=== PATIENT | male | born 1930 | race Caucasian/White ===

== ENCOUNTER 2016-11-17 18:41 | Inpatient (IN) | payer MEDICARE, MEDICAID ==
[~2016-11-17] VITALS: Ht 167.6 cm; Wt 65.1 kg
[~2016-11-17 18:41] MED LIST: ETOMIDATE 2 MG/ML 10 ML VIAL IVP ONE; SUCCINYLCHOLINE CHLORIDE 20 MG/ML 10 ML VIAL IVP ONE
[2016-11-17] MEDS ORDERED: RAPID SEQUENCE KIT [RSI] 1 EACH KIT ONE ×2 (18:53)
[2016-11-17] MEDS ORDERED: SUCCINYLCHOLINE CHLORIDE 20 MG/ML 10 ML VIAL ONE (18:54)
[2016-11-17] MEDS ORDERED: DEXTROSE 50%-WATER 25 GM/50 ML SYRINGE IVP ONE ×2 (18:54→19:15)
[2016-11-17 19:23] LABS: BASOPHILS % (AUTO) 0.2 % (0.0-2.0); EOSINOPHILS % (AUTO) 0.8 % (1.0-6.0); HEMOGLOBIN 11.2 g/dL (13.5-17.5); LYMPHOCYTES # (AUTO) 1.2 K/uL (1.0-4.8); LYMPHOCYTES % (AUTO) 10.8 % (22.0-44.0); MEAN CORPUSCULAR HEMOGLOBIN 28.5 pg (26.0-34.0); MEAN CORPUSCULAR HGB CONC 31.1 G/dL (31.0-37.0); MEAN CORPUSCULAR VOLUME 92 fL (80-100); MONOCYTES # (AUTO) 0.5 K/uL (0.1-1.0); MONOCYTES % (AUTO) 4.3 % (2.0-9.0); NEUTROPHILS # (AUTO) 9.5 K/uL (1.8-7.7); NEUTROPHILS % (AUTO) 83.9 % (40.0-70.0); PLATELET COUNT (AUTO) 240 K/uL (150-450); RED BLOOD CELL COUNT(AUTO) 3.92 MIL/uL (4.50-5.90); RED CELL DISTRIBUTION WIDTH 18.2 % (11.5-14.5); WHITE BLOOD COUNT (AUTO) 11.3 K/uL (4.5-11.0)
[2016-11-17] MEDS ORDERED: PROPOFOL 1000 MG/ISO-OSM 100 ML IV PRN (19:30)
[2016-11-17 19:35] LABS: INR 1.1 (0.9-1.1)
[2016-11-17 19:46] LABS: RBC MORPHOLOGY COMMENT ABNORMAL RBC MORPH
[2016-11-17 19:46] LABS: GLUCOSE,POINT OF CARE 168 MG/DL (70-110)
[2016-11-17 20:01] LABS: ALANINE AMINOTRANSFERASE 19 U/L (12-78); ANION GAP 17 mmol/L (8-16); ASPARTATE AMINOTRANSFERASE 22 U/L (15-37); BILIRUBIN,TOTAL 0.4 mg/dL (0.1-1.0); CALCIUM, TOTAL 8.6 mg/dL (8.8-10.5); CARBON DIOXIDE 20 mmol/L (22-29); CHLORIDE 128 mmol/L (98-107); CREATINE KINASE MB 1.3 ng/mL (0-5); CREATINE KINASE, TOTAL 135 U/L (39-308); CREATININE 2.22 mg/dL (0.60-1.30); GLOMERULAR FILTR. RATE CALC 28 mL/min (>60); POTASSIUM 5.2 mmol/L (3.5-5.1); TOTAL PROTEIN, SERUM 7.8 g/dL (6.4-8.2); UREA NITROGEN, BLOOD 49 mg/dL (7-18)
[2016-11-17 20:05] LABS: SODIUM SERUM 165 mmol/L (136-145)
[2016-11-17] MEDS ORDERED: SODIUM CHLORIDE 0.9% 1,000 ML IV ONE (20:30)
[2016-11-17 20:32] LABS: APPEARANCE,URINE CLOUDY (CLEAR); PH,URINE >=9.0 (5.0-8.0)
[2016-11-17 20:33] LABS: ADD UA MICROSCOPIC YES; GLUCOSE, URINE (UA) NEGATIVE (NEGATIVE); KETONES,URINE NEGATIVE (NEGATIVE); LEUKOCYTE ESTERASE ,URINE LARGE (NEGATIVE); OCCULT BLOOD,URINE SMALL (NEGATIVE); PROTEIN,URINE SEE CONFIRM (NEGATIVE)
[2016-11-17 20:41] LABS: SULFOSALICYLIC ACID,URINE 1+ (Negative)
[2016-11-17 20:42] LABS: WBC,URINE Full Field /HPF (0-5)
[2016-11-17] MEDS ORDERED: RISP0.5T19 PO (20:54)
[2016-11-17] MEDS ORDERED: DOCU250C91 PO (20:54)
[2016-11-17] MEDS ORDERED: AMLO5TAB66 PO (20:54)
[2016-11-17] MEDS ORDERED: CefTRIAXone 1 GM/DEXTROSE 50 ML IV ONE (21:00)
[2016-11-17 21:35] LABS: ABG A-A DIFF O2 276.6 mmHg (10-20.0); ABG BASE EXCESS -6.7 mmol/L (-2.0-3.0); ABG HCO3 19.9 mmol/L (22.0-26.0); ABG OXYHEMOGLOBIN 97.4 % (94.0-100.0); ABG PCO2 28 mmHg (35-45); ABG PH 7.417 (7.35-7.450); TEMPERATURE, FAHRENHEIT, BG 98.6 FAHREN (96.0-98.6)
[2016-11-17 21:36] LABS: ALLEN TEST, BLOOD GAS Positive
[2016-11-17] MEDS ORDERED: LEVOFLOXACIN 250 MG/D5% WATER 50 ML IV SCH (22:00)
[2016-11-17] MEDS: SODIUM CHLORIDE 0.45% 1,000 ML IV SCH (22:29)
[2016-11-18 01:46] LABS: GLUCOSE,POINT OF CARE 100 MG/DL (70-110)
[2016-11-18 04:51] LABS: BASOPHILS % (AUTO) 0.4 % (0.0-2.0); EOSINOPHILS % (AUTO) 0.2 % (1.0-6.0); HEMATOCRIT 32.7 % (41-53); HEMOGLOBIN 10.4 g/dL (13.5-17.5); LYMPHOCYTES # (AUTO) 1.4 K/uL (1.0-4.8); LYMPHOCYTES % (AUTO) 8.8 % (22.0-44.0); MEAN CORPUSCULAR HEMOGLOBIN 28.9 pg (26.0-34.0); MEAN CORPUSCULAR HGB CONC 31.9 G/dL (31.0-37.0); MEAN CORPUSCULAR VOLUME 90 fL (80-100); MONOCYTES # (AUTO) 0.5 K/uL (0.1-1.0); MONOCYTES % (AUTO) 2.9 % (2.0-9.0); NEUTROPHILS # (AUTO) 13.7 K/uL (1.8-7.7); PLATELET COUNT (AUTO) 191 K/uL (150-450); RED BLOOD CELL COUNT(AUTO) 3.62 MIL/uL (4.50-5.90); RED CELL DISTRIBUTION WIDTH 17.7 % (11.5-14.5); WHITE BLOOD COUNT (AUTO) 15.6 K/uL (4.5-11.0)
[2016-11-18 05:04] LABS: NEUTROPHILS % (AUTO) 87.7 % (40.0-70.0)
[2016-11-18 05:05] LABS: CALCIUM, TOTAL 8.3 mg/dL (8.8-10.5); CREATININE 2.37 mg/dL (0.60-1.30); POTASSIUM 4.3 mmol/L (3.5-5.1)
[2016-11-18] MEDS: ASPIRIN 81 MG CHEWABLE TABLET PO SCH (09:00)
[2016-11-18] MEDS: DOCUSATE SODIUM 100 MG CAPSULE PO SCH ×2 (09:00→20:18)
[2016-11-18] MEDS: PANTOPRAZOLE SODIUM 40 MG/VIAL IVP SCH (09:58)
[2016-11-18] MEDS: HEPARIN SODIUM,PORCINE 5,000 UNITS/ML VIAL SQ SCH ×2 (09:58→20:18)
[2016-11-18] MEDS: SODIUM CHLORIDE 0.45% 1,000 ML IV SCH (12:10)
[2016-11-18] MEDS ORDERED: PROPOFOL 1000 MG/ISO-OSM 100 ML IV ONE (12:15)
[2016-11-18] MEDS ORDERED: DOXYCYCLINE 50 MG PO ONE (15:15)
[2016-11-18 16:44] VITALS: BP 119/51
[2016-11-18] MEDS: DEXTROSE 5%-WATER 1,000 ML IV SCH (17:54)
[2016-11-18] MEDS: CefTRIAXone 1 GM/DEXTROSE 50 ML IV SCH (21:07)
[2016-11-18] MEDS ORDERED: INFLUENZA VIRUS VACCINE QVS 2016-17 (3YR+)/PF 60 MCG/0.5 ML SYRINGE IM ONE (22:15)
[2016-11-18] MEDS ORDERED: PNEUMOCOCCAL VACCINE POLYVALENT 0.5 ML VIAL [PPSV23] IM ONE (22:45)
[2016-11-19] VITALS: BP 110/55
[2016-11-19 04:00] VITALS: BP 129/56
[2016-11-19] MEDS: DEXTROSE 5%-WATER 1,000 ML IV SCH ×4 (04:45→18:28)
[2016-11-19 08:00] VITALS: BP 130/51
[2016-11-19 08:09] LABS: ABG A-A DIFF O2 119.3 mmHg (10-20.0); ABG BASE EXCESS -6.7 mmol/L (-2.0-3.0); ABG HCO3 19.8 mmol/L (22.0-26.0); ABG OXYHEMOGLOBIN 96.9 % (94.0-100.0); ABG PCO2 29 mmHg (35-45); ABG PH 7.412 (7.35-7.450); TEMPERATURE, FAHRENHEIT, BG 98.6 FAHREN (96.0-98.6)
[2016-11-19 08:10] LABS: ALLEN TEST, BLOOD GAS Positive
[2016-11-19 08:34] LABS: EOSINOPHILS % (AUTO) 1.1 % (1.0-6.0); HEMATOCRIT 28.1 % (41-53); LYMPHOCYTES # (AUTO) 1.5 K/uL (1.0-4.8); LYMPHOCYTES % (AUTO) 8.4 % (22.0-44.0); MEAN CORPUSCULAR HEMOGLOBIN 28.8 pg (26.0-34.0); MEAN CORPUSCULAR HGB CONC 31.9 G/dL (31.0-37.0); MEAN CORPUSCULAR VOLUME 90 fL (80-100); MONOCYTES # (AUTO) 0.8 K/uL (0.1-1.0); MONOCYTES % (AUTO) 4.4 % (2.0-9.0); PLATELET COUNT (AUTO) 143 K/uL (150-450); RED BLOOD CELL COUNT(AUTO) 3.12 MIL/uL (4.50-5.90); RED CELL DISTRIBUTION WIDTH 17.7 % (11.5-14.5); WHITE BLOOD COUNT (AUTO) 17.4 K/uL (4.5-11.0)
[2016-11-19] MEDS: PANTOPRAZOLE SODIUM 40 MG/VIAL IVP SCH (08:35)
[2016-11-19] MEDS: DOCUSATE SODIUM 100 MG CAPSULE PO SCH ×2 (08:35→20:18)
[2016-11-19] MEDS: HEPARIN SODIUM,PORCINE 5,000 UNITS/ML VIAL SQ SCH ×2 (08:35→20:18)
[2016-11-19] MEDS: ASPIRIN 81 MG CHEWABLE TABLET PO SCH (08:36)
[2016-11-19 08:37] LABS: NEUTROPHILS % (AUTO) 86.1 % (40.0-70.0)
[2016-11-19 08:50] LABS: CREATININE 2.49 mg/dL (0.60-1.30)
[2016-11-19] MEDS: DOXYCYCLINE 100 MG in DEXTROSE 5%-WATER 100 ML IV SCH ×2 (09:36→19:12)
[2016-11-19 11:55] LABS: ABG A-A DIFF O2 117.5 mmHg (10-20.0); ABG BASE EXCESS -7.5 mmol/L (-2.0-3.0); ABG HCO3 19.2 mmol/L (22.0-26.0); ABG OXYHEMOGLOBIN 97.2 % (94.0-100.0); ABG PCO2 28 mmHg (35-45); ABG PH 7.404 (7.35-7.450); TEMPERATURE, FAHRENHEIT, BG 97.6 FAHREN (96.0-98.6)
[2016-11-19 11:56] LABS: ALLEN TEST, BLOOD GAS Positive
[2016-11-19 12:00] VITALS: BP 136/50
[2016-11-19 16:00] VITALS: BP 130/47
[2016-11-19 20:00] VITALS: BP 118/42
[2016-11-19] MEDS: CefTRIAXone 1 GM/DEXTROSE 50 ML IV SCH (20:15)
[2016-11-20] VITALS: BP 111/44
[2016-11-20 04:00] VITALS: BP 115/45
[2016-11-20 06:19] LABS: CALCIUM, TOTAL 7.8 mg/dL (8.8-10.5); CREATININE 2.05 mg/dL (0.60-1.30); POTASSIUM 3.2 mmol/L (3.5-5.1)
[2016-11-20 06:44] LABS: BASOPHILS % (AUTO) 0.1 % (0.0-2.0); EOSINOPHILS % (AUTO) 3.1 % (1.0-6.0); HEMATOCRIT 27.6 % (41-53); HEMOGLOBIN 8.9 g/dL (13.5-17.5); LYMPHOCYTES % (AUTO) 7.9 % (22.0-44.0); MEAN CORPUSCULAR HGB CONC 32.1 G/dL (31.0-37.0); MEAN CORPUSCULAR VOLUME 90 fL (80-100); MONOCYTES # (AUTO) 0.5 K/uL (0.1-1.0); NEUTROPHILS % (AUTO) 84.9 % (40.0-70.0); PLATELET COUNT (AUTO) 136 K/uL (150-450); RED BLOOD CELL COUNT(AUTO) 3.05 MIL/uL (4.50-5.90); RED CELL DISTRIBUTION WIDTH 18.1 % (11.5-14.5); WHITE BLOOD COUNT (AUTO) 12.9 K/uL (4.5-11.0)
[2016-11-20] MEDS: DEXTROSE 5%-WATER 1,000 ML IV SCH (07:34)
[2016-11-20 08:00] VITALS: BP 115/41
[2016-11-20] MEDS ORDERED: POTASSIUM CHLORIDE 10% 40 MEQ/30 ML LIQUID UDCUP NG ONE (08:15)
[2016-11-20] MEDS: DOXYCYCLINE 100 MG in DEXTROSE 5%-WATER 100 ML IV SCH ×2 (08:23→22:41)
[2016-11-20] MEDS: PANTOPRAZOLE SODIUM 40 MG/VIAL IVP SCH (09:24)
[2016-11-20] MEDS: ASPIRIN 81 MG CHEWABLE TABLET PO SCH (09:24)
[2016-11-20] MEDS: HEPARIN SODIUM,PORCINE 5,000 UNITS/ML VIAL SQ SCH ×2 (09:25→22:46)
[2016-11-20] MEDS: DOCUSATE SODIUM 100 MG CAPSULE PO SCH ×2 (09:25→22:46)
[2016-11-20] MEDS: POTASSIUM CHLORIDE 20 MEQ in DEXTROSE 5%-WATER 1,000 ML IV SCH (09:28)
[2016-11-20 12:00] VITALS: BP 115/48
[2016-11-20 16:00] VITALS: BP 112/47
[2016-11-20 20:10] VITALS: BP 133/46
[2016-11-21] VITALS (7 sets, daily range): BP systolic 111–151; BP diastolic 46–59
[2016-11-21] MEDS: CefTRIAXone 1 GM/DEXTROSE 50 ML IV SCH ×2 (00:09→20:47)
[2016-11-21] MEDS: POTASSIUM CHLORIDE 20 MEQ in DEXTROSE 5%-WATER 1,000 ML IV SCH (02:17)
[2016-11-21 07:43] LABS: CALCIUM, TOTAL 8.1 mg/dL (8.8-10.5); CREATININE 1.69 mg/dL (0.60-1.30); POTASSIUM 4.5 mmol/L (3.5-5.1)
[2016-11-21 08:10] LABS: BASOPHILS # (AUTO) 0.01 K/uL (0.00-0.20); BASOPHILS % (AUTO) 0.1 % (0.0-2.0); EOSINOPHILS # (AUTO) 0.25 K/uL (0.00-0.70); EOSINOPHILS % (AUTO) 2.86 % (1.0-6.0); HEMATOCRIT 28.5 % (41-53); HEMOGLOBIN 9.4 g/dL (13.5-17.5); LYMPHOCYTES # (AUTO) 0.6 K/uL (1.0-4.8); MEAN CORPUSCULAR HEMOGLOBIN 29.2 pg (26.0-34.0); MEAN CORPUSCULAR VOLUME 88 fL (80-100); MONOCYTES # (AUTO) 0.3 K/uL (0.1-1.0); MONOCYTES % (AUTO) 3.4 % (2.0-9.0); NEUTROPHILS # (AUTO) 7.7 K/uL (1.8-7.7); PLATELET COUNT (AUTO) 155 K/uL (150-450); RED BLOOD CELL COUNT(AUTO) 3.22 MIL/uL (4.50-5.90); RED CELL DISTRIBUTION WIDTH 17.9 % (11.5-14.5); WHITE BLOOD COUNT (AUTO) 8.9 K/uL (4.5-11.0)
[2016-11-21 08:12] LABS: NEUTROPHILS % (AUTO) 86.6 % (40.0-70.0); RBC MORPHOLOGY COMMENT ABNORMAL RBC MORPH
[2016-11-21] MEDS: DOXYCYCLINE 100 MG in DEXTROSE 5%-WATER 100 ML IV SCH ×2 (08:30→19:37)
[2016-11-21] MEDS: ASPIRIN 81 MG CHEWABLE TABLET PO SCH (08:31)
[2016-11-21] MEDS: PANTOPRAZOLE SODIUM 40 MG/VIAL IVP SCH (08:31)
[2016-11-21] MEDS: DOCUSATE SODIUM 100 MG CAPSULE PO SCH ×2 (08:31→20:47)
[2016-11-21] MEDS: HEPARIN SODIUM,PORCINE 5,000 UNITS/ML VIAL SQ SCH ×2 (08:31→20:47)
[2016-11-21] MEDS: DEXTROSE 5%-WATER 1,000 ML IV SCH (12:32)
[2016-11-22 05:00] VITALS: BP 158/72
[2016-11-22 07:24] VITALS: BP 149/55
[2016-11-22 08:33] LABS: CALCIUM, TOTAL 8.3 mg/dL (8.8-10.5); CREATININE 1.44 mg/dL (0.60-1.30); POTASSIUM 4.5 mmol/L (3.5-5.1)
[2016-11-22] MEDS: DOCUSATE SODIUM 100 MG CAPSULE PO SCH ×2 (10:07→22:15)
[2016-11-22] MEDS: ASPIRIN 81 MG CHEWABLE TABLET PO SCH (10:07)
[2016-11-22] MEDS: HEPARIN SODIUM,PORCINE 5,000 UNITS/ML VIAL SQ SCH ×2 (10:11→21:14)
[2016-11-22] MEDS: DOXYCYCLINE 100 MG in DEXTROSE 5%-WATER 100 ML IV SCH ×2 (10:13→21:14)
[2016-11-22] MEDS: DEXTROSE 5%-WATER 1,000 ML IV SCH (10:14)
[2016-11-22] MEDS: PANTOPRAZOLE SODIUM 40 MG/VIAL IVP SCH (11:10)
[2016-11-22 11:23] VITALS: BP 122/51
[2016-11-22 15:52] VITALS: BP 124/54
[2016-11-22 19:46] VITALS: BP 144/70
[2016-11-22] MEDS: CefTRIAXone 1 GM/DEXTROSE 50 ML IV SCH (22:15)
[2016-11-22 23:26] VITALS: BP 144/60
[2016-11-23 04:40] VITALS: BP 120/57
[2016-11-23] MEDS: DEXTROSE 5%-WATER 1,000 ML IV SCH (06:30)
[2016-11-23 07:13] VITALS: BP 125/48
[2016-11-23] MEDS: HEPARIN SODIUM,PORCINE 5,000 UNITS/ML VIAL SQ SCH ×2 (08:56→22:51)
[2016-11-23] MEDS: PANTOPRAZOLE SODIUM 40 MG/VIAL IVP SCH (09:02)
[2016-11-23] MEDS: DOCUSATE SODIUM 100 MG CAPSULE PO SCH ×2 (09:20→22:51)
[2016-11-23] MEDS: ASPIRIN 81 MG CHEWABLE TABLET PO SCH (09:20)
[2016-11-23] MEDS: DOXYCYCLINE 100 MG in DEXTROSE 5%-WATER 100 ML IV SCH ×2 (09:24→21:33)
[2016-11-23 09:26] LABS: CALCIUM, TOTAL 7.8 mg/dL (8.8-10.5); CREATININE 1.31 mg/dL (0.60-1.30); POTASSIUM 4.2 mmol/L (3.5-5.1)
[2016-11-23 11:30] VITALS: BP 116/48
[2016-11-23 19:12] VITALS: BP 139/58
[2016-11-23] MEDS: CefTRIAXone 1 GM/DEXTROSE 50 ML IV SCH (22:52)
[2016-11-23 23:36] VITALS: BP 175/58
[2016-11-24] VITALS: BP 138/67
[2016-11-24] MEDS: DEXTROSE 5%-WATER 1,000 ML IV SCH ×2 (04:27→23:20)
[2016-11-24 04:41] VITALS: BP 135/55
[2016-11-24 06:51] LABS: CALCIUM, TOTAL 8.3 mg/dL (8.8-10.5); CREATININE 1.17 mg/dL (0.60-1.30); POTASSIUM 4.1 mmol/L (3.5-5.1)
[2016-11-24 07:39] VITALS: BP 136/57
[2016-11-24] MEDS: DOXYCYCLINE 100 MG in DEXTROSE 5%-WATER 100 ML IV SCH ×2 (09:06→20:34)
[2016-11-24] MEDS: PANTOPRAZOLE SODIUM 40 MG/VIAL IVP SCH (09:07)
[2016-11-24] MEDS: DOCUSATE SODIUM 100 MG CAPSULE PO SCH ×2 (09:08→22:30)
[2016-11-24] MEDS: ASPIRIN 81 MG CHEWABLE TABLET PO SCH (09:08)
[2016-11-24] MEDS: HEPARIN SODIUM,PORCINE 5,000 UNITS/ML VIAL SQ SCH (09:08)
[2016-11-24 11:28] VITALS: BP 146/67
[2016-11-24 15:26] VITALS: BP 135/55
[2016-11-24] MEDS ORDERED: SODIUM CHLORIDE 0.9% 100 ML ONE (16:20)
[2016-11-24] MEDS: SOD FERRIC GLUC COMPLX/SUCROSE 125 MG in SODIUM CHLORIDE 0.9% 100 ML IV SCH (16:26)
[2016-11-24 20:18] VITALS: BP 135/54
[2016-11-24] MEDS: OXYGEN THERAPY IH SCH (22:31)
[2016-11-24] MEDS: CefTRIAXone 1 GM/DEXTROSE 50 ML IV SCH (22:31)
[2016-11-25 00:51] VITALS: BP 158/53
[2016-11-25] MEDS: BISACODYL 10 MG RECTAL RECTAL SUPPOSITORY PR PRN (01:50)
[2016-11-25 04:51] VITALS: BP 155/59
[2016-11-25 06:56] LABS: ANION GAP 9 mmol/L (8-16); CALCIUM, TOTAL 8.1 mg/dL (8.8-10.5); CARBON DIOXIDE 23 mmol/L (22-29); CHLORIDE 110 mmol/L (98-107); CREATININE 1.07 mg/dL (0.60-1.30); GLOMERULAR FILTR. RATE CALC > 60 mL/min (>60); POTASSIUM 4.4 mmol/L (3.5-5.1); SODIUM SERUM 142 mmol/L (136-145); UREA NITROGEN, BLOOD 25 mg/dL (7-18)
[2016-11-25 07:29] VITALS: BP 148/50
[2016-11-25] MEDS ORDERED: SODIUM CHLORIDE 0.9% 1,000 ML IV ONE ×2 (08:49→12:00)
[2016-11-25] MEDS: DOCUSATE SODIUM 100 MG CAPSULE PO SCH ×2 (09:21→21:00)
[2016-11-25] MEDS: PANTOPRAZOLE SODIUM 40 MG/VIAL IVP SCH (09:21)
[2016-11-25] MEDS: OXYGEN THERAPY IH SCH ×2 (09:22→21:49)
[2016-11-25] MEDS: DOXYCYCLINE 100 MG in DEXTROSE 5%-WATER 100 ML IV SCH ×2 (09:22→20:46)
[2016-11-25 10:50] LABS: B-TYPE NATRIURETIC PEPTIDE 187 pg/mL (0-100)
[2016-11-25] MEDS ORDERED: CAFFEINE 200 MG TABLET PO ONE (11:00)
[2016-11-25 11:08] VITALS: BP 156/67
[2016-11-25 11:34] LABS: MAGNESIUM 1.9 mg/dL (1.80-2.40); THYROID STIMULATING HORMONE 3.04 uIU/mL (0.36-3.74)
[2016-11-25 12:03] LABS: GLUCOSE,POINT OF CARE 138 MG/DL (70-110)
[2016-11-25] MEDS ORDERED: MAGNESIUM SULFATE 1 GM in DEXTROSE 5%-WATER 50 ML IV ONE (13:45)
[2016-11-25] MEDS ORDERED: SODIUM CHLORIDE 0.9% 100 ML ONE (15:06)
[2016-11-25] MEDS: SOD FERRIC GLUC COMPLX/SUCROSE 125 MG in SODIUM CHLORIDE 0.9% 100 ML IV SCH (15:06)
[2016-11-25 15:14] VITALS: BP 136/50
[2016-11-25 19:32] VITALS: BP 123/51
[2016-11-25] MEDS: CefTRIAXone 1 GM/DEXTROSE 50 ML IV SCH (21:49)
[2016-11-25] MEDS: DEXTROSE 5%-WATER 1,000 ML IV SCH (21:50)
[2016-11-26 00:24] VITALS: BP 124/65
[2016-11-26 05:08] VITALS: BP 119/64
[2016-11-26 07:17] LABS: BASOPHILS % (AUTO) 0.2 % (0.0-2.0); EOSINOPHILS % (AUTO) 3.9 % (1.0-6.0); HEMATOCRIT 28.9 % (41-53); HEMOGLOBIN 9.4 g/dL (13.5-17.5); LYMPHOCYTES # (AUTO) 0.8 K/uL (1.0-4.8); LYMPHOCYTES % (AUTO) 13.2 % (22.0-44.0); MEAN CORPUSCULAR HEMOGLOBIN 28.7 pg (26.0-34.0); MEAN CORPUSCULAR HGB CONC 32.4 G/dL (31.0-37.0); MEAN CORPUSCULAR VOLUME 89 fL (80-100); MONOCYTES # (AUTO) 0.6 K/uL (0.1-1.0); MONOCYTES % (AUTO) 9.7 % (2.0-9.0); NEUTROPHILS # (AUTO) 4.6 K/uL (1.8-7.7); PLATELET COUNT (AUTO) 291 K/uL (150-450); RED BLOOD CELL COUNT(AUTO) 3.27 MIL/uL (4.50-5.90); RED CELL DISTRIBUTION WIDTH 16.4 % (11.5-14.5); WHITE BLOOD COUNT (AUTO) 6.3 K/uL (4.5-11.0)
[2016-11-26 07:35] LABS: ALANINE AMINOTRANSFERASE 21 U/L (12-78); ALBUMIN 2.2 g/dL (3.4-5.0); ANION GAP 11 mmol/L (8-16); ASPARTATE AMINOTRANSFERASE 23 U/L (15-37); BILIRUBIN,TOTAL 0.2 mg/dL (0.1-1.0); CALCIUM, TOTAL 7.7 mg/dL (8.8-10.5); CARBON DIOXIDE 23 mmol/L (22-29); CHLORIDE 107 mmol/L (98-107); GLOMERULAR FILTR. RATE CALC > 60 mL/min (>60); PHOSPHORUS 2.7 mg/dL (2.5-4.9); POTASSIUM 4.4 mmol/L (3.5-5.1); SODIUM SERUM 141 mmol/L (136-145); TOTAL PROTEIN, SERUM 5.9 g/dL (6.4-8.2); UREA NITROGEN, BLOOD 22 mg/dL (7-18)
[2016-11-26 07:39] VITALS: BP 149/59
[2016-11-26] MEDS: OXYGEN THERAPY IH SCH ×2 (08:47→21:09)
[2016-11-26] MEDS: DOXYCYCLINE 100 MG in DEXTROSE 5%-WATER 100 ML IV SCH ×2 (08:47→21:09)
[2016-11-26] MEDS: CAFFEINE 200 MG TABLET PO SCH ×2 (09:15→21:09)
[2016-11-26] MEDS: PANTOPRAZOLE SODIUM 40 MG/VIAL IVP SCH (11:18)
[2016-11-26] MEDS: DOCUSATE SODIUM 100 MG CAPSULE PO SCH ×2 (11:18→21:09)
[2016-11-26 11:42] VITALS: BP 143/52
[2016-11-26] MEDS: SOD FERRIC GLUC COMPLX/SUCROSE 125 MG in SODIUM CHLORIDE 0.9% 100 ML IV SCH (16:06)
[2016-11-26] MEDS: DEXTROSE 5%-WATER 1,000 ML IV SCH (16:06)
[2016-11-26 16:27] VITALS: BP 151/46
[2016-11-26 19:37] VITALS: BP 132/54
[2016-11-27] VITALS (7 sets, daily range): BP systolic 137–153; BP diastolic 54–101
[2016-11-27 08:37] LABS: BASOPHILS % (AUTO) 0.3 % (0.0-2.0); EOSINOPHILS % (AUTO) 4.4 % (1.0-6.0); HEMATOCRIT 26.5 % (41-53); HEMOGLOBIN 8.7 g/dL (13.5-17.5); LYMPHOCYTES # (AUTO) 1.6 K/uL (1.0-4.8); LYMPHOCYTES % (AUTO) 22.7 % (22.0-44.0); MEAN CORPUSCULAR HEMOGLOBIN 28.8 pg (26.0-34.0); MEAN CORPUSCULAR HGB CONC 32.8 G/dL (31.0-37.0); MEAN CORPUSCULAR VOLUME 88 fL (80-100); MONOCYTES # (AUTO) 0.7 K/uL (0.1-1.0); MONOCYTES % (AUTO) 9.9 % (2.0-9.0); NEUTROPHILS # (AUTO) 4.4 K/uL (1.8-7.7); NEUTROPHILS % (AUTO) 62.7 % (40.0-70.0); PLATELET COUNT (AUTO) 279 K/uL (150-450); RED BLOOD CELL COUNT(AUTO) 3.01 MIL/uL (4.50-5.90); RED CELL DISTRIBUTION WIDTH 16.6 % (11.5-14.5)
[2016-11-27 09:02] LABS: ALANINE AMINOTRANSFERASE 20 U/L (12-78); ALBUMIN 2.1 g/dL (3.4-5.0); ANION GAP 9 mmol/L (8-16); ASPARTATE AMINOTRANSFERASE 16 U/L (15-37); BILIRUBIN,TOTAL 0.2 mg/dL (0.1-1.0); CALCIUM, TOTAL 7.9 mg/dL (8.8-10.5); CARBON DIOXIDE 24 mmol/L (22-29); CHLORIDE 110 mmol/L (98-107); CREATININE 0.89 mg/dL (0.60-1.30); GLOMERULAR FILTR. RATE CALC > 60 mL/min (>60); PHOSPHORUS 2.9 mg/dL (2.5-4.9); POTASSIUM 4.7 mmol/L (3.5-5.1); SODIUM SERUM 143 mmol/L (136-145); TOTAL PROTEIN, SERUM 5.8 g/dL (6.4-8.2); UREA NITROGEN, BLOOD 20 mg/dL (7-18)
[2016-11-27] MEDS: OXYGEN THERAPY IH SCH ×2 (09:51→21:27)
[2016-11-27] MEDS: DOXYCYCLINE 100 MG in DEXTROSE 5%-WATER 100 ML IV SCH ×2 (09:51→21:27)
[2016-11-27] MEDS: PANTOPRAZOLE SODIUM 40 MG/VIAL IVP SCH (09:52)
[2016-11-27] MEDS: DOCUSATE SODIUM 100 MG CAPSULE PO SCH ×3 (09:52→21:27)
[2016-11-27] MEDS: DEXTROSE 5%-WATER 1,000 ML IV SCH (12:42)
[2016-11-27] MEDS: CAFFEINE 200 MG TABLET PO SCH ×2 (16:00→23:44)
[2016-11-27] MEDS: SOD FERRIC GLUC COMPLX/SUCROSE 125 MG in SODIUM CHLORIDE 0.9% 100 ML IV SCH (16:54)
[2016-11-27] MEDS ORDERED: SODIUM CHLORIDE 0.9% 250 ML IV ONE (19:54)
[2016-11-28 04:28] VITALS: BP 146/48
[2016-11-28 07:29] VITALS: BP 131/50
[2016-11-28] MEDS: CAFFEINE 200 MG TABLET PO SCH ×2 (08:00→17:39)
[2016-11-28] MEDS ORDERED: AMINOPHYLLINE 25 MG/ML 10 ML VIAL IVP ONE ×2 (08:15→12:45)
[2016-11-28 08:16] LABS: BASOPHILS % (AUTO) 0.6 % (0.0-2.0); EOSINOPHILS % (AUTO) 4.6 % (1.0-6.0); HEMATOCRIT 27.9 % (41-53); LYMPHOCYTES # (AUTO) 1.7 K/uL (1.0-4.8); LYMPHOCYTES % (AUTO) 23.8 % (22.0-44.0); MEAN CORPUSCULAR HEMOGLOBIN 28.4 pg (26.0-34.0); MEAN CORPUSCULAR HGB CONC 32.4 G/dL (31.0-37.0); MEAN CORPUSCULAR VOLUME 88 fL (80-100); MONOCYTES # (AUTO) 0.6 K/uL (0.1-1.0); MONOCYTES % (AUTO) 8.1 % (2.0-9.0); NEUTROPHILS # (AUTO) 4.4 K/uL (1.8-7.7); NEUTROPHILS % (AUTO) 62.9 % (40.0-70.0); PLATELET COUNT (AUTO) 375 K/uL (150-450); RED BLOOD CELL COUNT(AUTO) 3.18 MIL/uL (4.50-5.90); RED CELL DISTRIBUTION WIDTH 16.2 % (11.5-14.5); WHITE BLOOD COUNT (AUTO) 7.1 K/uL (4.5-11.0)
[2016-11-28] MEDS: DOXYCYCLINE 100 MG in DEXTROSE 5%-WATER 100 ML IV SCH ×2 (08:17→21:36)
[2016-11-28] MEDS: PANTOPRAZOLE SODIUM 40 MG/VIAL IVP SCH (08:17)
[2016-11-28 08:39] LABS: ALANINE AMINOTRANSFERASE 17 U/L (12-78); ALBUMIN 2.1 g/dL (3.4-5.0); ANION GAP 8 mmol/L (8-16); ASPARTATE AMINOTRANSFERASE 16 U/L (15-37); BILIRUBIN,TOTAL 0.3 mg/dL (0.1-1.0); CALCIUM, TOTAL 7.9 mg/dL (8.8-10.5); CARBON DIOXIDE 25 mmol/L (22-29); CHLORIDE 109 mmol/L (98-107); CREATININE 0.96 mg/dL (0.60-1.30); GLOMERULAR FILTR. RATE CALC > 60 mL/min (>60); PHOSPHORUS 2.8 mg/dL (2.5-4.9); POTASSIUM 4.2 mmol/L (3.5-5.1); SODIUM SERUM 142 mmol/L (136-145); TOTAL PROTEIN, SERUM 6.7 g/dL (6.4-8.2); UREA NITROGEN, BLOOD 16 mg/dL (7-18)
[2016-11-28] MEDS: DOCUSATE SODIUM 100 MG CAPSULE PO SCH ×2 (09:00→21:00)
[2016-11-28] MEDS ORDERED: SODIUM CHLORIDE 0.9% 1,000 ML IV ONE (11:00)
[2016-11-28 11:41] VITALS: BP 146/52
[2016-11-28] MEDS ORDERED: LIDOCAINE HCL/PF 2% 5 ML VIAL INJ ONE (12:00)
[2016-11-28] MEDS ORDERED: PROPOFOL 1% 20 ML VIAL IVP ONE (12:00)
[2016-11-28] MEDS ORDERED: HYDROmorphone 2 MG/ML SYRINGE IVP PRN (14:00)
[2016-11-28] MEDS ORDERED: MEPERIDINE-PF 25 MG/ML SYRINGE IVP PRN (14:00)
[2016-11-28] MEDS ORDERED: FentaNYL CITRATE-PF 100 MCG/2 ML VIAL IVP PRN (14:00)
[2016-11-28 15:07] VITALS: BP 153/55
[2016-11-28] MEDS: DEXTROSE 5%-WATER 1,000 ML IV SCH (16:59)
[2016-11-28] MEDS: ACETAMINOPHEN 325 MG TABLET PO PRN ×2 (17:39→21:37)
[2016-11-28] MEDS: OXYGEN THERAPY IH SCH ×2 (17:39→19:25)
[2016-11-28] MEDS ORDERED: MAGNESIUM SULFATE 1 GM in DEXTROSE 5%-WATER 50 ML IV ONE (18:15)
[2016-11-28 19:29] VITALS: BP 121/53
[2016-11-29] VITALS (7 sets, daily range): BP systolic 106–136; BP diastolic 53–68
[2016-11-29] MEDS: CAFFEINE 200 MG TABLET PO SCH (01:25)
[2016-11-29] MEDS: HYDROCODONE/ACETAMINOPHEN 5-325 MG TABLET PEG PRN (01:33)
[2016-11-29] MEDS: DEXTROSE 5%-WATER 1,000 ML IV SCH (04:31)
[2016-11-29] MEDS ORDERED: DEXTROSE 50%-WATER 25 GM/50 ML SYRINGE IVP PRN (05:45)
[2016-11-29 06:39] LABS: BASOPHILS # (AUTO) 0.01 K/uL (0.00-0.20); EOSINOPHILS # (AUTO) 0.06 K/uL (0.00-0.70); EOSINOPHILS % (AUTO) 0.26 % (1.0-6.0); HEMATOCRIT 29.8 % (41-53); HEMOGLOBIN 9.9 g/dL (13.5-17.5); LYMPHOCYTES # (AUTO) 1.1 K/uL (1.0-4.8); LYMPHOCYTES % (AUTO) 4.4 % (22.0-44.0); MEAN CORPUSCULAR HEMOGLOBIN 28.8 pg (26.0-34.0); MEAN CORPUSCULAR HGB CONC 33.1 G/dL (31.0-37.0); MEAN CORPUSCULAR VOLUME 87 fL (80-100); MONOCYTES % (AUTO) 4.1 % (2.0-9.0); NEUTROPHILS # (AUTO) 21.9 K/uL (1.8-7.7); PLATELET COUNT (AUTO) 455 K/uL (150-450); RED BLOOD CELL COUNT(AUTO) 3.42 MIL/uL (4.50-5.90); RED CELL DISTRIBUTION WIDTH 16.3 % (11.5-14.5)
[2016-11-29 07:05] LABS: NEUTROPHILS % (AUTO) 91.2 % (40.0-70.0)
[2016-11-29 07:10] LABS: ALANINE AMINOTRANSFERASE 19 U/L (12-78); ALBUMIN 2.3 g/dL (3.4-5.0); ANION GAP 10 mmol/L (8-16); ASPARTATE AMINOTRANSFERASE 19 U/L (15-37); BILIRUBIN,TOTAL 0.4 mg/dL (0.1-1.0); CALCIUM, TOTAL 8.1 mg/dL (8.8-10.5); CARBON DIOXIDE 24 mmol/L (22-29); CHLORIDE 104 mmol/L (98-107); CREATININE 1.11 mg/dL (0.60-1.30); GLOMERULAR FILTR. RATE CALC > 60 mL/min (>60); POTASSIUM 4.5 mmol/L (3.5-5.1); SODIUM SERUM 138 mmol/L (136-145); TOTAL PROTEIN, SERUM 7.1 g/dL (6.4-8.2); UREA NITROGEN, BLOOD 15 mg/dL (7-18)
[2016-11-29] MEDS: DOXYCYCLINE 100 MG in DEXTROSE 5%-WATER 100 ML IV SCH ×2 (08:33→08:38)
[2016-11-29] MEDS: PANTOPRAZOLE SODIUM 40 MG/VIAL IVP SCH (08:33)
[2016-11-29] MEDS: OXYGEN THERAPY IH SCH ×2 (08:36→20:24)
[2016-11-29] MEDS ORDERED: CAFFEINE 200 MG TABLET PO SCH (09:00)
[2016-11-29 09:18] LABS: GLUCOSE,POINT OF CARE 131 MG/DL (70-110)
[2016-11-29] MEDS ORDERED: ACETAMINOPHEN 650 MG/20.3 ML SOLUTION UDCUP PEG PRN (14:45)
[2016-11-29] MEDS: MEROPENEM 1 GM in SODIUM CHLORIDE 0.9% 100 ML IV SCH ×2 (15:14→23:59)
[2016-11-29] MEDS: POVIDONE-IODINE 10% 120 ML SOLUTION TP SCH (15:14)
[2016-11-29] MEDS: HYDROGEN PEROXIDE 473 ML SOLUTION TP SCH (15:16)
[2016-11-29] MEDS: CAFFEINE 200 MG TABLET PEG SCH (20:23)
[2016-11-29] MEDS: NYSTATIN 15 GM POWDER BOTTLE TP SCH (20:24)
[2016-11-29] MEDS: DOCUSATE SODIUM 100 MG CAPSULE PEG SCH (20:24)
[2016-11-30 05:19] VITALS: BP 133/50
[2016-11-30 05:47] LABS: GLUCOSE,POINT OF CARE 124 MG/DL (70-110)
[2016-11-30 07:38] LABS: EOSINOPHILS % (AUTO) 0.5 % (1.0-6.0); HEMATOCRIT 28.6 % (41-53); HEMOGLOBIN 9.3 g/dL (13.5-17.5); LYMPHOCYTES # (AUTO) 1.9 K/uL (1.0-4.8); LYMPHOCYTES % (AUTO) 8.8 % (22.0-44.0); MEAN CORPUSCULAR HEMOGLOBIN 28.7 pg (26.0-34.0); MEAN CORPUSCULAR HGB CONC 32.6 G/dL (31.0-37.0); MEAN CORPUSCULAR VOLUME 88 fL (80-100); MONOCYTES # (AUTO) 1.1 K/uL (0.1-1.0); NEUTROPHILS # (AUTO) 18.3 K/uL (1.8-7.7); PLATELET COUNT (AUTO) 504 K/uL (150-450); RED BLOOD CELL COUNT(AUTO) 3.24 MIL/uL (4.50-5.90); RED CELL DISTRIBUTION WIDTH 16.2 % (11.5-14.5); WHITE BLOOD COUNT (AUTO) 21.4 K/uL (4.5-11.0)
[2016-11-30 07:39] LABS: NEUTROPHILS % (AUTO) 85.7 % (40.0-70.0)
[2016-11-30 07:45] LABS: ALBUMIN 2.2 g/dL (3.4-5.0); BILIRUBIN,TOTAL 0.3 mg/dL (0.1-1.0); CALCIUM, TOTAL 7.9 mg/dL (8.8-10.5); CREATININE 1.21 mg/dL (0.60-1.30); MAGNESIUM 1.9 mg/dL (1.80-2.40); POTASSIUM 4.8 mmol/L (3.5-5.1); TOTAL PROTEIN, SERUM 6.2 g/dL (6.4-8.2)
[2016-11-30 07:51] VITALS: BP 136/66
[2016-11-30] MEDS: DOCUSATE SODIUM 100 MG CAPSULE PEG SCH ×2 (07:53→20:34)
[2016-11-30] MEDS: PANTOPRAZOLE SODIUM 40 MG/VIAL IVP SCH (07:53)
[2016-11-30] MEDS: MEROPENEM 1 GM in SODIUM CHLORIDE 0.9% 100 ML IV SCH ×4 (07:54→23:07)
[2016-11-30] MEDS: OXYGEN THERAPY IH SCH ×2 (07:55→20:00)
[2016-11-30] MEDS: CAFFEINE 200 MG TABLET PEG SCH (07:55)
[2016-11-30] MEDS: POVIDONE-IODINE 10% 120 ML SOLUTION TP SCH (07:56)
[2016-11-30] MEDS: NYSTATIN 15 GM POWDER BOTTLE TP SCH ×2 (07:56→20:34)
[2016-11-30] MEDS: HYDROGEN PEROXIDE 473 ML SOLUTION TP SCH (07:58)
[2016-11-30 11:39] VITALS: BP 142/71
[2016-11-30] MEDS: INSULIN ASPART 100 UNITS/ML SQ PRN ×3 (11:53→23:22)
[2016-11-30] MEDS ORDERED: MEROPENEM 1 GM in SODIUM CHLORIDE 0.9% 100 ML IV SCH (12:00)
[2016-11-30 14:23] LABS: GLUCOSE COMMENT 1 Received Meds; GLUCOSE,POINT OF CARE 142 MG/DL (70-110)
[2016-11-30 14:23] LABS: GLUCOSE,POINT OF CARE 120 MG/DL (70-110)
[2016-11-30 14:23] LABS: GLUCOSE COMMENT 1 Received Meds; GLUCOSE,POINT OF CARE 265 MG/DL (70-110)
[2016-11-30 15:27] VITALS: BP 153/71
[2016-11-30 19:45] VITALS: BP 151/85
[2016-11-30 23:30] VITALS: BP 132/52
[2016-12-01] MEDS: BISACODYL 10 MG RECTAL RECTAL SUPPOSITORY PR PRN (05:35)
[2016-12-01 05:40] VITALS: BP 155/68
[2016-12-01 07:27] LABS: GLUCOSE COMMENT 1 Received Meds; GLUCOSE,POINT OF CARE 243 MG/DL (70-110)
[2016-12-01 07:38] LABS: BASOPHILS % (AUTO) 0.3 % (0.0-2.0); EOSINOPHILS % (AUTO) 0.7 % (1.0-6.0); HEMATOCRIT 29.4 % (41-53); HEMOGLOBIN 9.6 g/dL (13.5-17.5); LYMPHOCYTES # (AUTO) 1.9 K/uL (1.0-4.8); LYMPHOCYTES % (AUTO) 10.3 % (22.0-44.0); MEAN CORPUSCULAR HEMOGLOBIN 28.8 pg (26.0-34.0); MEAN CORPUSCULAR HGB CONC 32.6 G/dL (31.0-37.0); MEAN CORPUSCULAR VOLUME 88 fL (80-100); MONOCYTES # (AUTO) 1.3 K/uL (0.1-1.0); MONOCYTES % (AUTO) 7.3 % (2.0-9.0); NEUTROPHILS % (AUTO) 81.4 % (40.0-70.0); PLATELET COUNT (AUTO) 522 K/uL (150-450); RED BLOOD CELL COUNT(AUTO) 3.32 MIL/uL (4.50-5.90); RED CELL DISTRIBUTION WIDTH 16.6 % (11.5-14.5); WHITE BLOOD COUNT (AUTO) 18.4 K/uL (4.5-11.0)
[2016-12-01] MEDS: PANTOPRAZOLE SODIUM 40 MG/VIAL IVP SCH (07:47)
[2016-12-01] MEDS: DOCUSATE SODIUM 100 MG CAPSULE PEG SCH ×2 (07:47→20:43)
[2016-12-01] MEDS: NYSTATIN 15 GM POWDER BOTTLE TP SCH ×2 (07:47→20:43)
[2016-12-01] MEDS: HYDROGEN PEROXIDE 473 ML SOLUTION TP SCH (07:48)
[2016-12-01] MEDS: POVIDONE-IODINE 10% 120 ML SOLUTION TP SCH (07:48)
[2016-12-01] MEDS: OXYGEN THERAPY IH SCH ×2 (07:48→20:43)
[2016-12-01 07:49] VITALS: BP 156/67
[2016-12-01 07:53] LABS: ALBUMIN 2.1 g/dL (3.4-5.0); BILIRUBIN,TOTAL 0.3 mg/dL (0.1-1.0); CALCIUM, TOTAL 8.1 mg/dL (8.8-10.5); CREATININE 1.26 mg/dL (0.60-1.30); POTASSIUM 4.8 mmol/L (3.5-5.1)
[2016-12-01] MEDS: HydrALAZINE HCL 10 MG TABLET PO SCH ×2 (10:28→20:43)
[2016-12-01] MEDS: MEROPENEM 1 GM in SODIUM CHLORIDE 0.9% 100 ML IV SCH ×2 (10:32→23:22)
[2016-12-01 11:47] VITALS: BP 161/69
[2016-12-01] MEDS: INSULIN ASPART 100 UNITS/ML SQ PRN ×2 (12:18→17:15)
[2016-12-01 16:04] VITALS: BP 158/68
[2016-12-01 17:16] LABS: GLUCOSE COMMENT 1 Received Meds; GLUCOSE,POINT OF CARE 148 MG/DL (70-110)
[2016-12-01 19:32] VITALS: BP 160/63
[2016-12-01] MEDS: HYDROCODONE/ACETAMINOPHEN 5-325 MG TABLET PEG PRN (20:43)
[2016-12-01 23:13] VITALS: BP 162/67
[2016-12-02 04:04] VITALS: BP 146/61
[2016-12-02 07:21] LABS: BASOPHILS % (AUTO) 0.2 % (0.0-2.0); EOSINOPHILS % (AUTO) 1.9 % (1.0-6.0); HEMATOCRIT 28.2 % (41-53); HEMOGLOBIN 9.2 g/dL (13.5-17.5); LYMPHOCYTES # (AUTO) 1.5 K/uL (1.0-4.8); LYMPHOCYTES % (AUTO) 9.6 % (22.0-44.0); MEAN CORPUSCULAR HEMOGLOBIN 28.9 pg (26.0-34.0); MEAN CORPUSCULAR HGB CONC 32.7 G/dL (31.0-37.0); MEAN CORPUSCULAR VOLUME 89 fL (80-100); MONOCYTES # (AUTO) 1.5 K/uL (0.1-1.0); MONOCYTES % (AUTO) 9.4 % (2.0-9.0); NEUTROPHILS # (AUTO) 12.5 K/uL (1.8-7.7); NEUTROPHILS % (AUTO) 78.9 % (40.0-70.0); PLATELET COUNT (AUTO) 461 K/uL (150-450); RED BLOOD CELL COUNT(AUTO) 3.18 MIL/uL (4.50-5.90); RED CELL DISTRIBUTION WIDTH 16.2 % (11.5-14.5); WHITE BLOOD COUNT (AUTO) 15.8 K/uL (4.5-11.0)
[2016-12-02 07:27] VITALS: BP 130/59
[2016-12-02 07:46] LABS: ALANINE AMINOTRANSFERASE 13 U/L (12-78); ALBUMIN 1.8 g/dL (3.4-5.0); ANION GAP 6 mmol/L (8-16); ASPARTATE AMINOTRANSFERASE 26 U/L (15-37); BILIRUBIN,TOTAL 0.2 mg/dL (0.1-1.0); CALCIUM, TOTAL 7.6 mg/dL (8.8-10.5); CARBON DIOXIDE 27 mmol/L (22-29); CHLORIDE 104 mmol/L (98-107); CREATININE 1.09 mg/dL (0.60-1.30); GLOMERULAR FILTR. RATE CALC > 60 mL/min (>60); POTASSIUM 5.1 mmol/L (3.5-5.1); SODIUM SERUM 137 mmol/L (136-145); TOTAL PROTEIN, SERUM 6.5 g/dL (6.4-8.2); UREA NITROGEN, BLOOD 22 mg/dL (7-18)
[2016-12-02] MEDS: DOCUSATE SODIUM 100 MG CAPSULE PEG SCH (08:14)
[2016-12-02] MEDS: OXYGEN THERAPY IH SCH (08:14)
[2016-12-02] MEDS: PANTOPRAZOLE SODIUM 40 MG/VIAL IVP SCH (08:14)
[2016-12-02] MEDS: HydrALAZINE HCL 10 MG TABLET PO SCH (08:15)
[2016-12-02] MEDS: HYDROGEN PEROXIDE 473 ML SOLUTION TP SCH (08:16)
[2016-12-02] MEDS: POVIDONE-IODINE 10% 120 ML SOLUTION TP SCH (08:16)
[2016-12-02] MEDS: NYSTATIN 15 GM POWDER BOTTLE TP SCH (08:16)
[2016-12-02] MEDS: BISACODYL 10 MG RECTAL RECTAL SUPPOSITORY PR PRN (08:18)
[2016-12-02] MEDS ORDERED: HYDR10 GT (10:09)
[2016-12-02] MEDS ORDERED: MERO1I IV (10:11)
[2016-12-02] MEDS ORDERED: NYST1POW16 TP (10:14)
[2016-12-02] MEDS ORDERED: PANT40TA25 GT (10:14)
[2016-12-02] MEDS ORDERED: SODIUM CHLORIDE 0.9% 100 ML ONE (10:24)
[2016-12-02] MEDS: MEROPENEM 1 GM in SODIUM CHLORIDE 0.9% 100 ML IV SCH (10:24)
[2016-12-02 11:21] VITALS: BP 134/47
[2016-12-02] MEDS: INSULIN ASPART 100 UNITS/ML SQ PRN (11:39)
[2016-12-02] MEDS ORDERED: MAGNESIUM OXIDE 400 MG TABLET GT SCH (13:45)
[2016-12-02 13:57] LABS: GLUCOSE,POINT OF CARE 114 MG/DL (70-110)
[2016-12-02 13:57] LABS: GLUCOSE COMMENT 1 Received Meds; GLUCOSE,POINT OF CARE 150 MG/DL (70-110)
[2016-12-02 13:57] LABS: GLUCOSE,POINT OF CARE 135 MG/DL (70-110)
[2016-12-02] MEDS ORDERED: MAGOX GT (15:10)
[2016-12-02 16:16] VITALS: BP 149/52
[2016-12-05 06:58] LABS: GLUCOSE,POINT OF CARE 113 MG/DL (70-110)
[2016-12-05 06:58] LABS: GLUCOSE COMMENT 1 Received Meds; GLUCOSE,POINT OF CARE 125 MG/DL (70-110)
[2016-12-05 06:59] LABS: GLUCOSE COMMENT 1 Received Meds; GLUCOSE,POINT OF CARE 146 MG/DL (70-110)
== END 2016-12-02 18:00 | DRG 871 ==
LOC: EMS 18:43 → ICU 11-18 14:27 → 5S 11-20 18:15
PROVIDERS: ADMIT Internal Medicine; ATTEND Internal Medicine
PROC: 5A1945Z Respiratory Ventilation, 24-96 Consecutive Hours (ICD-10-PCS; principal; 2016-11-18)
PROC: 0BH17EZ Insertion of Endotracheal Airway into Trachea, Via Natural or Artificial Opening (ICD-10-PCS; 2016-11-18)
PROC: 3E0234Z Introduction of Serum, Toxoid and Vaccine into Muscle, Percutaneous Approach (ICD-10-PCS; 2016-11-19)
PROC: 0DH63UZ Insertion of Feeding Device into Stomach, Percutaneous Approach (ICD-10-PCS; 2016-11-28)
DX: A41.9 Sepsis, unspecified organism (principal); J69.0 Pneumonitis due to inhalation of food and vomit; E43 Unspecified severe protein-calorie malnutrition; J15.1 Pneumonia due to Pseudomonas; J96.01 Acute respiratory failure with hypoxia; E87.2 Acidosis; E87.0 Hyperosmolality and hypernatremia; N17.9 Acute kidney failure, unspecified; N39.0 Urinary tract infection, site not specified; E87.1 Hypo-osmolality and hyponatremia; G72.81 Critical illness myopathy; Z66 Do not resuscitate; E86.0 Dehydration; D63.8 Anemia in other chronic diseases classified elsewhere; E87.8 Other disorders of electrolyte and fluid balance, not elsewhere classified; F03.90 Unspecified dementia, unspecified severity, without behavioral disturbance, psychotic disturbance, mood disturbance, and anxiety; I12.9 Hypertensive chronic kidney disease with stage 1 through stage 4 chronic kidney disease, or unspecified chronic kidney disease; N18.9 Chronic kidney disease, unspecified; R13.10 Dysphagia, unspecified; K59.00 Constipation, unspecified; E87.6 Hypokalemia; E83.42 Hypomagnesemia; B96.20 Unspecified Escherichia coli [E. coli] as the cause of diseases classified elsewhere; B96.4 Proteus (mirabilis) (morganii) as the cause of diseases classified elsewhere; Z79.899 Other long term (current) drug therapy; Z87.891 Personal history of nicotine dependence; Z86.73 Personal history of transient ischemic attack (TIA), and cerebral infarction without residual deficits; Z23 Encounter for immunization; Z78.1 Physical restraint status; Z68.23 Body mass index [BMI] 23.0-23.9, adult
CPT/HCPCS: 31500; 51702; 70450; 71250; 74000; 76700; 82607; 82746; 82805; 82962; 83540; 83550; 83735; 84100; 84443; 87040; 87070; 87081; 87086; 87205; 90471; 92526; 92610; 93005; 93306; 94002; 94003; 96361; 96365; 96366; 96372; 96375; 97162; 97165; 99291; C9113; J0280; J0330; J0696; J1644; J2185; J2704; J2916; J3475; J3480; J3490; J7030; J7050; J7060